=== PATIENT | female | born 2000 | race Caucasian/White ===

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

== ENCOUNTER 2024-05-22 13:00 | Inpatient (IN) | payer OTHER ==
[~2024-05-22] VITALS: Ht 152.4 cm; Wt 70.8 kg
[~2024-05-22 13:00] MED LIST: FEOSOL325 MG PO; PRENATAL TABLE1 EAC1 PO
[2024-05-26] VITALS (11 sets, daily range): BP systolic 108–134; BP diastolic 55–94
[2024-05-26] MEDS ORDERED: RINGERS SOLUTION,LACTATED 1,000 ML IV SCH (02:15)
[2024-05-26 03:01] LABS: HEMATOCRIT 34.5 % (36.0-45.00); MEAN CELL VOLUME 78.1 fL (80.00-100.00); PLATELET COUNT 219 K/uL (150-450); RED BLOOD COUNT 4.41 M/uL (4.00-6.00)
[2024-05-26 03:10] LABS: PH,URINE 7.5 (5.0-8.0); URINE APPEARANCE Clear; URINE BILIRRUBIN Negative (NEGATIVE); URINE BLOOD Negative; URINE COLOR Yellow; URINE GLUCOSE Negative (NEGATIVE); URINE KETONE Negative (NEGATIVE); URINE LEUKOCYTE Negative; URINE NITRATE Negative; URINE PROTEIN Negative (NEGATIVE); URINE UROBILINOGEN 0.2 E.U./dl
[2024-05-26 03:13] LABS: URINE BACTERIA 366.5 uL (0.0-1933); URINE RBC 12.9 uL (0.0-20.8); URINE WBC 12.3 uL (0.0-23.2)
[2024-05-26] MEDS ORDERED: TERBUTALINE SULFATE 1 MG/ML AMPUL SUBCUTANEO ONE (03:15)
[2024-05-26 03:26] LABS: ALBUMIN 2.7 gm/dL (3.4-5.0); BILIRUBIN TOTAL 0.44 mg/dL (0.3-1.2); CALCIUM 8.7 mg/dL (8.5-10.1); CREATININE SERUM 0.43 mg/dL (0.55-1.02); GFR 181.96; GLOBULINA 3.8 G/DL (2.4-3.5); HEMOGLOBIN 11.7 g/dL (12.0-15.00); MEAN CORPUSCULAR HEMOGLOBIN 26.5 pg (27.00-32.0); POTASSIUM 4.36 mEq/L (3.5-5.1); TOTAL PROTEIN 6.5 gm/dL (6.4-8.2)
[2024-05-26 03:27] LABS: INR 0.94; PARTIAL THROMBOPLASTIN TIME 27.3 SECONDS (22.0-34.0); PROTHROMBIN TIME 10.3 SECONDS (9.0-11.5)
[2024-05-26] MEDS ORDERED: OXYTOCIN 500 ML IV SCH (08:00)
[2024-05-26] MEDS ORDERED: OxyCODONE HCL/APAP UD (PERCOCET) PO PRN (11:15)
[2024-05-26] MEDS ORDERED: ERYTHROMYCIN BASE OPHT 1GM EACH TUBE OP ONE (11:15)
[2024-05-26] MEDS ORDERED: CHLORHEXIDINE GLUCONATE 120 ML BOTTLE TOP ONE (11:15)
[2024-05-26] MEDS ORDERED: OXYTOCIN 20 UNITS/1000ML RL PIGGYBAG IV ONE (11:15)
[2024-05-26] MEDS ORDERED: ACETAMINOPHEN 325 MG TABLET PO PRN (11:15)
[2024-05-26] MEDS ORDERED: BENZOCAINE/MENTHOL 90 ML BOTTLE TOP SCH (13:00)
[2024-05-26] MEDS ORDERED: HYDROCORTISONE 2.5% 30 GM TUBE RECTAL SCH (13:00)
[2024-05-27 00:47] VITALS: BP 107/87
[2024-05-27 03:37] LABS: HEMATOCRIT 30.2 % (36.0-45.00); HEMOGLOBIN 10.1 g/dL (12.0-15.00); MEAN CELL VOLUME 79.9 fL (80.00-100.00); MEAN CORPUSCULAR HEMOGLOBIN 26.8 pg (27.00-32.0); MEAN CORPUSCULAR HGB CONC 33.5 g/dl (32.0-36.0); PLATELET COUNT 183 K/uL (150-450); RED BLOOD COUNT 3.78 M/uL (4.00-6.00); RED CELL DISTRIBUTION WIDTH 13.9 % (11.5-14.5)
[2024-05-27 08:00] VITALS: BP 95/63
[2024-05-27] MEDS ORDERED: MORPHINE SULFATE 4 MG/ML VIAL IV ONE ×2 (15:35→16:20)
[2024-05-27 18:00] VITALS: BP 110/61
[2024-05-28 00:20] VITALS: BP 92/60
[2024-05-28 08:00] VITALS: BP 95/66
[2024-05-28] MEDS ORDERED: IBUPROFEN800 MG PO (08:16)
== END 2024-05-28 13:35 | disposition home or self-care (01) | DRG 798 ==
LOC: LDR 05-26 02:10 → OB/GYN 05-26 02:10
PROVIDERS: ADMIT Specialist; ATTEND Specialist
PROC: 10E0XZZ Delivery of Products of Conception, External Approach (ICD-10-PCS; principal; 2024-05-26)
PROC: 4A1HXCZ Monitoring of Products of Conception, Cardiac Rate, External Approach (ICD-10-PCS; 2024-05-26)
PROC: 0UB70ZZ Excision of Bilateral Fallopian Tubes, Open Approach (ICD-10-PCS; 2024-05-27)
DX: O80 Encounter for full-term uncomplicated delivery (principal); Z37.0 Single live birth; Z30.2 Encounter for sterilization; Z3A.39 39 weeks gestation of pregnancy; Z20.822 Contact with and (suspected) exposure to COVID-19